=== PATIENT | female | born 1955 | race Caucasian/White ===

== ENCOUNTER 2016-07-25 22:35 | Observation (INO) ==
[2016-07-25 23:25] LABS: Basophils # 0.1 K/mcL (0.0-0.2); Basophils % 0.7 %; Eosinophils # 0.7 K/mcL (0.0-0.6); Eosinophils % 6.4 %; Hematocrit 35.4 % (35.3-44.9); Hemoglobin 11.4 g/dL (11.5-15.4); Immature Granulocytes % 0.6 % (0-4); Lymphocytes % 28.8 %; Mean Corpuscular HGB Conc 32.2 g/dL (31.6-35.5); Mean Corpuscular Hemoglobin 29.8 pg (28.0-33.3); Mean Corpuscular Volume 92.7 fL (83.0-100.0); Monocytes # 0.5 K/mcL (0.0-1.3); Monocytes % 4.7 %; Neutrophils # 6.1 K/mcL (1.6-8.9); Platelet Count 251 K/mcL (140-400); Red Blood Count 3.82 M/mcL (3.82-4.97); Red Cell Distribution Width 14.3 % (11.5-14.5); Segmented Neutrophils % 58.8 %
[2016-07-25 23:35] LABS: BUN/Creatinine Ratio 15 (6-26); Blood Urea Nitrogen 15 mg/dL (7-20); Calcium 9.3 mg/dL (8.6-10.8); Carbon Dioxide 24 mEq/L (19-29); Chloride 107 mEq/L (98-109); Glucose 142 mg/dL (70-99); Osmolality,Calculated 297 (280-300); Potassium 3.6 mEq/L (3.5-4.5); Sodium 142 mEq/L (136-145); eGFR For African Americans > 60 (> 60); eGFR For Non-African Americans 58 (> 60)
[2016-07-26 01:06] LABS: Bilirubin,Urine Negative (Negative); Blood,Urine Negative (Negative); Clarity,Urine Cloudy (Clear); Color,Urine Yellow (Yellow); Glucose,Urine (UA) Normal (Normal); Ketones,Urine Negative (Negative); Leukocyte Esterase,Urine Moderate (Negative); Nitrite,Urine Negative (Negative); PH,Urine 6.5 pH Units (5.0-8.0); Protein,Urine 30 mg/dL (Neg-Trace); Specific Gravity,Urine 1.027 (1.010-1.025); Urobilinogen,Urine Normal (Normal)
[2016-07-26 01:14] LABS: Bacteria,Urine Few per hpf (None-Few); Hyaline Casts,Urine Few per lpf (None-Few); Squamous Epithelial Cell,Urine Few per lpf (None-Few)
--- NOTE | 2016-07-26 02:34 | Emergency Department Note ---
Disposition Clinical Impression: Chest heaviness, Dyspnea on exertion, Bacteriuria, Peripheral edema Disposition: Admitted As Inpatient Condition: Good Referrals: NO,PCP [Primary Care Provider] - Forms: ED Satisfaction Letter SOB HPI - General Chief Complaint: ED Shortness of Breath/Dyspnea Stated Complaint: "SOB/Swollen Feet/Ankles" Time Seen by Provider: 07/25/16 22:42 Source: patient, family Mode of arrival: private vehicle Limitations: no limitations Nursing Notes Reviewed: Yes Vital Signs Reviewed: Yes - History of Present Illness Pt Subjective Complaint: shortness of breath, chest pain ("heaviness") Onset (ago): day(s) Context: occurred during exertion Severity: moderate Consistency/Duration: intermittent, gradually worsening Improves with: oxygen, rest, upright position Worsens with: lying flat, exertion Known history of: asthma Associated symptoms: Reports: chest pain ("heaviness"), cough, orthopnea. Denies: pain with inspiration, fever, wheezing, sputum production, lower extremity pain, polyuria, polydipsia, parasthesias, palpitations, hemoptysis, diaphoresis, nausea/vomiting, syncope, abdominal pain, sense of impending doom Treatment prior to arrival: oxygen Cough present: Yes Cough Description: Involuntary, Non-Productive, Dry Cough Frequency: Intermittent Sputum production: No Sputum Amount: None - Related Data Home oxygen amount: CPAP Home Medications Medication Instructions Recorded Confirmed Albuterol Sulfate [Albuterol 2 puff IH Q4HR PRN 04/19/16 04/19/16 Inhaler] Amlodipine Besylate 10 mg PO DAILY 04/19/16 04/19/16 Aspirin 81 mg PO DAILY 04/19/16 04/19/16 Atorvastatin Calcium [Lipitor] 20 mg PO HS 04/19/16 04/19/16 Beclomethasone Diprop 40mcg [Qvar 2 puff IH BID PRN 04/19/16 04/19/16 40 mcg] Bisoprolol/HCTZ 2.5/6.25 [Ziac 1 each PO DAILY 04/19/16 04/19/16 2.5/6.25] Dicyclomine HCl [Bentyl] 20 mg PO QID 04/19/16 04/19/16 Duloxetine HCl [Cymbalta] 60 mg PO HS 04/19/16 04/19/16 Loratadine [Allergy Relief] 10 mg PO HS 04/19/16 04/19/16 Losartan/Hydrochlorothiazide 1 tab PO DAILY 04/19/16 04/19/16 [Hyzaar 100-25 Tablet] Montelukast [Singulair] 10 mg PO HS 04/19/16 04/19/16 Pregabalin [Lyrica] 100 mg PO BID 04/19/16 04/19/16 Allergies Allergy/AdvReac Type Severity Reaction Status Date / Time Cyclobenzaprine AdvReac Rash Verified 04/19/16 13:47 [From Flexeril] Hydromorphone [From Dilaudid] AdvReac Rash Verified 04/19/16 13:47 Penicillins [PCN] AdvReac Rash Verified 04/19/16 13:47 Sulfa (Sulfonamide AdvReac Rash Verified 04/19/16 13:47 Antibiotics) All systems ED: reviewed and negative except as stated. Constitutional: Denies: fever, chills, weakness Cardiovascular: Reports: chest pain, dyspnea on exertion, orthopnea, edema. Denies: palpitations, syncope, paroxysmal nocturnal dyspnea Respiratory: Reports: cough, dyspnea. Denies: wheezes, hemoptysis, stridor, sputum production Gastrointestinal: Denies: abdominal pain, nausea, vomiting Musculoskeletal: Denies: back pain, neck pain, joint swelling Neurological: Denies: headache, weakness Past Medical History - Past Medical History Attestation: Yes The following information was validated with the patient. 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 Absent: scleral icterus, conjunctival injection, periorbital swelling - ENT ENT exam: mucous membranes moist - Neck Neck exam: Present: normal inspection, full ROM. Absent: lymphadenopathy - Chest Chest inspection: Present: normal inspection, symmetric chest wall rise. Absent : tenderness - Respiratory Respiratory exam: Present: normal lung sounds bilaterally. Absent: respiratory distress, wheezes, stridor, accessory muscle use, prolonged expiratory phase - Cardiovascular Cardiovascular exam: Present: regular rate, normal rhythm, normal heart sounds - Abdominal Exam Abdominal exam: Present: soft, Non-Tender. Absent: mass - Extremities Exam Extremities exam: Present: full ROM, normal capillary refill, pedal edema. Absent: joint swelling, calf tenderness - Expanded Lower Extremity Exam Gait: observed and normal - Neurological Exam Neurological exam: Present: alert, oriented X3, CN II-XII intact, normal gait - Psychiatric Psychiatric exam: Present: normal affect, normal mood - Skin Skin exam: Present: warm, dry, intact, normal color Course Course Narrative: Patient is a 61-year-old morbidly obese diabetic female with hyperlipidemia and hypertension. She presents for evaluation of peripheral edema, dyspnea on exertion, orthopnea and episodic chest heaviness. Her last stress test was in 2014, and was not normal, per her report. Her last heart catheterization was in 2008 and showed blockage in one vessel. Per her report. That was done at [facility]. She has no pain at this time. X-ray does not show any abnormalities. EKG is unchanged compared to previous. Labs are essentially unremarkable. Given her multiple risk factors, I am concerned for the dyspnea and chest heaviness being an anginal equivalent. She will require admission for further evaluation. Case has been discussed with Dr. Brandon. He has seen the patient and agrees with the assessment and plan. Vital Signs Temperature 98.3 F 07/26/16 00:12 Pulse Rate 84 07/26/16 00:12 Respiratory Rate 20 07/26/16 00:12 Blood Pressure 180/66 07/26/16 00:12 O2 Sat by Pulse Oximetry 95 07/26/16 00:12 Temperature 98.3 F 07/26/16 00:12 Pulse Rate 79 07/26/16 01:48 Respiratory Rate 20 07/26/16 01:48 Blood Pressure 124/69 07/26/16 01:48 O2 Sat by Pulse Oximetry 97 07/26/16 01:48 Oxygen Delivery Oxygen Delivery Room Air Shortness of Breath/Dyspnea - Medical Records Medical records reviewed: Yes I reviewed the patient's medical records. - Lab Data Lab results reviewed: Yes I reviewed the patient's lab results. Result diagrams: 07/25/16 23:17 07/25/16 23:17 Lab Results 07/25/16 07/25/16 07/25/16 Range/Units 23:17 23:17 23:17 WBC 10.4 (4.3-11.1) K/mcL RBC 3.82 (3.82-4.97) M/mcL Hgb 11.4 L (11.5-15.4) g/dL Hct 35.4 (35.3-44.9) % MCV 92.7 (83.0-100.0) fL MCH 29.8 (28.0-33.3) pg MCHC 32.2 (31.6-35.5) g/dL RDW 14.3 (11.5-14.5) % Plt Count 251 (140-400) K/mcL MPV 11.0 (9.4-12.4) fL Immature Gran % 0.6 (0-4) % Seg Neutrophils % 58.8 % Lymphocytes % 28.8 % Monocytes % 4.7 % Eosinophils % 6.4 % Basophils % 0.7 % Neutrophils # 6.1 (1.6-8.9) K/mcL Lymphocytes # 3.0 (0.6-4.6) K/mcL Monocytes # 0.5 (0.0-1.3) K/mcL Eosinophils # 0.7 H (0.0-0.6) K/mcL Basophils # 0.1 (0.0-0.2) K/mcL Sodium 142 (136-145) mEq/L Potassium 3.6 (3.5-4.5) mEq/L Chloride 107 (98-109) mEq/L Carbon Dioxide 24 (19-29) mEq/L BUN 15 (7-20) mg/dL Creatinine 0.98 (0.57-1.11) mg/dL Est GFR ( Amer) > 60 (> 60) Est GFR (Non-Af Amer) 58 L (> 60) BUN/Creatinine Ratio 15 (6-26) Glucose 142 H (70-99) mg/dL Calculated Osmolality 297 (280-300) Calcium 9.3 (8.6-10.8) mg/dL Troponin I (0-0.03) ng/mL B-Natriuretic Peptide 14 (0-100) pg/mL Ur Specimen Adequacy Urine Color (Yellow) Urine Clarity (Clear) Urine pH (5.0-8.0) pH Units Ur Specific [place] (1.010-1.025) Urine Protein (Neg-Trace) mg/dL Urine Glucose (UA) (Normal) mg/dL Urine Ketones (Negative) mg/dL Urine Blood (Negative) Urine Nitrite (Negative) Urine Bilirubin (Negative) Urine Urobilinogen (Normal) mg/dL Ur Leukocyte Esterase (Negative) Urine Microscopic RBC Urine Microscopic WBC (0-3) per hpf Ur Squamous Epith Cells (None-Few) per lpf Urine Bacteria (None-Few) per hpf Hyaline Casts (None-Few) per lpf Ur Culture Indicated? (NO) 07/25/16 07/26/16 Range/Units 23:17 00:56 WBC (4.3-11.1) K/mcL RBC (3.82-4.97) M/mcL Hgb (11.5-15.4) g/dL Hct (35.3-44.9) % MCV (83.0-100.0) fL MCH (28.0-33.3) pg MCHC (31.6-35.5) g/dL RDW (11.5-14.5) % Plt Count (140-400) K/mcL MPV (9.4-12.4) fL Immature Gran % (0-4) % Seg Neutrophils % % Lymphocytes % % Monocytes % % Eosinophils % % Basophils % % Neutrophils # (1.6-8.9) K/mcL Lymphocytes # (0.6-4.6) K/mcL Monocytes # (0.0-1.3) K/mcL Eosinophils # (0.0-0.6) K/mcL Basophils # (0.0-0.2) K/mcL Sodium (136-145) mEq/L Potassium (3.5-4.5) mEq/L Chloride (98-109) mEq/L Carbon Dioxide (19-29) mEq/L BUN (7-20) mg/dL Creatinine (0.57-1.11) mg/dL Est GFR ( Amer) (> 60) Est GFR (Non-Af Amer) (> 60) BUN/Creatinine Ratio (6-26) Glucose (70-99) mg/dL Calculated Osmolality (280-300) Calcium (8.6-10.8) mg/dL Troponin I 0.00 (0-0.03) ng/mL B-Natriuretic Peptide (0-100) pg/mL Ur Specimen Adequacy See below A Urine Color Yellow (Yellow) Urine Clarity Cloudy A (Clear) Urine pH 6.5 (5.0-8.0) pH Units Ur Specific [place] 1.027 H (1.010-1.025) Urine Protein 30 H (Neg-Trace) mg/dL Urine Glucose (UA) Normal (Normal) mg/dL Urine Ketones Negative (Negative) mg/dL Urine Blood Negative (Negative) Urine Nitrite Negative (Negative) Urine Bilirubin Negative (Negative) Urine Urobilinogen Normal (Normal) mg/dL Ur Leukocyte Esterase Moderate H (Negative) Urine Microscopic RBC Test Not Performed Urine Microscopic WBC 5-15 H (0-3) per hpf Ur Squamous Epith Cells Few (None-Few) per lpf Urine Bacteria Few (None-Few) per hpf Hyaline Casts Few (None-Few) per lpf Ur Culture Indicated? YES A (NO) - Radiology Data Radiology results reviewed: Yes I reviewed the patient's radiology results. Chest X-Ray 07/25/16 22:42 IMPRESSION: 1. No active pulmonary disease. D/ / John Paul Pang MD / John Paul Pang MD Interpreting Provider: John Paul Pang MD - EKG Data EKG attestation: Yes I reviewed and interpreted this EKG. EKG shows normal: Reports: sinus rhythm Rate: Reports: normal Rhythm: Reports: NSR Q waves: Reports: II, aVF Interpretation: Reports: unchanged when compared to prior tracing (date)
[2016-07-26 02:58] LABS: Albumin 3.6 g/dL (3.5-5.0); Bilirubin,Direct 0.1 mg/dL (0.0-0.5); Bilirubin,Indirect 0.2 mg/dL (0.0-1.2); Bilirubin,Total 0.3 mg/dL (0.2-1.2); Globulin 3.5 g/dL (2.4-3.5); Magnesium 1.9 mg/dL (1.6-2.6); Total Protein 7.1 g/dL (6.0-8.3)
[2016-07-26] MEDS ORDERED: Aspirin 81 MG TAB.CHEW PO ONE (04:21)
--- NOTE | 2016-07-26 04:48 | Emergency Department Note ---
START Narrative - START START: I examined this patient and my medical decision-making was reviewed with the DRIER TENDER/PA/Advanced Practice Nurse/Resident Physician. I agree with the documented findings, disposition and treatment plan as described except to the extent set forth below. 61-year-old female presents with concerns of increasing dyspnea on exertion. Patient states she hurt her last heart catheterization was over 10 years ago and showed a 50% blockage which was not stented at that time. Patient does not follow with a price clerk at this time. Patient reports chest pain and dyspnea with exertion with associated palpitations but denies nausea, vomiting, diaphoresis. Lungs are clear to auscultation. ECG shows normal sinus rhythm with rate of 77 without evidence of STEMI or ischemia. Initial troponin negative. Patient will be admitted to the hospital for further Evaluation of chest pain to rule out ACS. Patient comfortable with the plan.
--- NOTE | 2016-07-26 08:45 | Internal Med History&Physical ---
Date of Encounter: 07/26/16 Time of Encounter: 08:40 Assessment and Plan (1) HTN (hypertension) Current visit: Yes Status: Chronic well controlled Qualifiers: Hypertension type: essential hypertension Qualified Code(s): I10 - Essential (primary) hypertension (2) Diabetes Current visit: Yes Status: Chronic resume home meds and sliding scale Qualifiers: Diabetes mellitus type: type 2 Diabetes mellitus complication status: with unspecified complications Diabetes mellitus ferry terminal agent insulin use: unspecified ferry terminal agent insulin use status Qualified Code(s): E11.8 - Type 2 diabetes mellitus with unspecified complications (3) Obesity Current visit: Yes Status: Chronic Qualifiers: Obesity type: due to excess calories Obesity severity: morbid Qualified Code(s): E66.01 - Morbid (severe) obesity due to excess calories (4) Hyperlipidemia Current visit: Yes Status: Chronic check in am Qualifiers: Hyperlipidemia type: other hyperlipidemia Qualified Code(s): E78.4 - Other hyperlipidemia (5) Dyspnea on exertion Current visit: Yes Status: Acute clinically not in chf, chest x ray no pneumonia contribution of cold symptoms likely viral bronchitis with some reactive airway disease will plce on duoneb (6) Peripheral edema Current visit: Yes Status: Acute (7) Chest heaviness Current visit: Yes Status: Acute had moderate risk factors and says has 50% stenosis on one vessel cath 2008 needs urther cardiac evaluation echo and nuclaer stress Internal Medicine - H&P: HPI Chief complaint: chest pain and sob Admitted From: Emergency Dept Plans for Post Hospital Care: Home History of present illness: Ms. Martin is a 61 year old female Patient with history of diabetes, hypertension, obesity, moderate obstructive sleep apnea, CAD says had a cardiac catheter about 2008 which was told she had 50% stenosis in one vessel . Also has history of high cholesterol . had PFT October last year which was normal patient present to the emergency room with chest heaviness and shortness of breath .. heaviness is more with exertion but also at rest sometimes last 20 minutes also concern about leg edema . She also having some dry cough for about 4 weeks which has not been improved also has some orthopnea and some wheezing . denied any fever or chills had a stress test done 2014 negative for ischemia ER evaluation chest x-ray was negative , no pneumonia BNP 14 patient is being admitted for ful]rther evaluation Past Med Surg Social Fam HX - Past Medical History Medical history: coronary artery disease, diabetes, hyperlipidemia, hypertension , other Psychiatric history: depression - Past Surgical History Surgical History: , cholecystectomy, orthopedic, other, other - Social History Smoking Status: Never smoker Smokeless Tobacco Status: No Alcohol use: rarely Drug use: none - Family History Mother Living Status: Age at : 49 Cause of : CHF Hx Family Cardiac Disorders: Yes (CHF, HTN,) Hx Family Respiratory Disorders: No Hx Family Cancer: No Hx Family GI Disorders: No Hx Family Genitourinary Disorders: No Hx Family Endocrine Disorder: Yes (DM) Hx Family Musculoskeletal Disorders: No Hx Family Neuromuscular Disorders: No Hx Family Neurologic Disorders: No Hx Family HEENT Disorders: Yes (Migraines) Hx Family Autoimmune Disorders: No Hx Family Reproductive Disorders: No Hx Family Psychosocial Disorders: No Hx Family Medical Disorders: No Internal Medicine - H&P: Meds Albuterol Sulfate [Albuterol Inhaler] 2 puff IH Q4HR PRN 04/19/16 [History] Amlodipine Besylate 10 mg PO DAILY 04/19/16 [History] Aspirin 81 mg PO DAILY 04/19/16 [History] Atorvastatin Calcium [Lipitor] 20 mg PO HS 04/19/16 [History] Beclomethasone Diprop 40mcg [Qvar 40 mcg] 2 puff IH BID PRN 04/19/16 [History] Bisoprolol/HCTZ 2.5/6.25 [Ziac 2.5/6.25] 1 each PO DAILY 04/19/16 [History] Duloxetine HCl [Cymbalta] 60 mg PO HS 04/19/16 [History] Loratadine [Allergy Relief] 10 mg PO HS 04/19/16 [History] Losartan/Hydrochlorothiazide [Hyzaar 100-25 Tablet] 1 tab PO DAILY 04/19/16 [ History] Montelukast [Singulair] 10 mg PO HS 04/19/16 [History] Pregabalin [Lyrica] 100 mg PO BID 04/19/16 [History] Lamotrigine [Lamictal] 100 mg PO DAILY 07/26/16 [History] Magnesium Oxide [Magnesium] 400 mg PO BID 07/26/16 [History] Allergies Cyclobenzaprine [From Flexeril] Adverse Reaction (Verified 07/26/16 07:49) Rash Hydromorphone [From Dilaudid] Adverse Reaction (Verified 07/26/16 07:49) Rash Penicillins [PCN] Adverse Reaction (Verified 07/26/16 07:49) Rash Sulfa (Sulfonamide Antibiotics) Adverse Reaction (Verified 07/26/16 07:49) Rash All Systems PM: A 10-system review of systems was performed and is negative for pertinent findings except as documented above in the HPI. - Constitutional Constitutional: other - EENT Eyes: no change in vision, no discharge, no pain, no photophobia Ears: no ear discharge, no ear pain, no tinnitus Nose, mouth and throat: no dysphagia, no nasal discharge, no neck pain, no sore throat - Cardiovascular Cardiovascular ROS IM: chest pain, dyspnea, dyspnea on exertion - Respiratory Respiratory: cough, dyspnea, wheezing - Gastrointestinal Gastrointestinal: no abdominal pain, no diarrhea, no hematemesis, no hematochezia, no melena, no nausea, no vomiting - Genitourinary Genitourinary: no change in urinary stream, no dysuria, no flank pain, no hematuria - Musculoskeletal Musculoskeletal ROS IM: no numbness, no tingling - Integumentary Integumentary IM: no rash, no unusual bruising - Neurological Neurological ROS: no confusion, no convulsions, no focal weakness, no numbness, no tingling, no tremor(s) - Constitutional Vitals: Temp Pulse Resp BP Pulse Ox 97.9 F 75 16 112/98 95 07/26/16 04:25 07/26/16 04:25 07/26/16 04:25 07/26/16 04:25 07/26/16 04:25 - Head Head exam: Present: atraumatic, normocephalic - Eye Eye exam: Present: PERRL, conjuntiva pink, sclera anicteric Pupils: Present: PERRL - Neck Neck exam general surgery: Present: supple, trachea midline. Absent: lymphadenopathy - Respiratory Respiratory exam: Present: rhonchi, wheezes - Cardiovascular Cardiovascular exam: Present: RRR, +S1, +S2. Absent: diastolic murmur, gallop, rubs, systolic murmur - GI/Abdominal GI/Abdominal exam: Present: normal bowel sounds, soft, no peritoneal signs. Absent: distended, tenderness - Extremities Exam Extremities exam: Present: pedal edema Internal Med - H&P Results - Labs CBC & Chem 7: 07/25/16 23:17 07/25/16 23:17
[2016-07-26] MEDS ORDERED: Naloxone 0.4 MG/ML INJ IVP PRN (08:52)
[2016-07-26] MEDS ORDERED: Ipratropium/Albuterol Neb 3 ML IH PRN (08:56)
[2016-07-26] MEDS ORDERED: *HR* Morphine 2 MG/ML SYRINGE IVP PRN (12:35)
[2016-07-26] MEDS: Magnesium Oxide 400 MG TABLET PO SCH ×2 (12:46→21:58)
[2016-07-26] MEDS: Aspirin 81 MG TAB.CHEW PO SCH (12:46)
[2016-07-26] MEDS: 0.9 % Sodium Chloride 1,000 ML IVC SCH ×2 (13:29→22:09)
[2016-07-26] MEDS: amLODIPine 5 MG TABLET PO SCH (13:29)
[2016-07-26] MEDS: Losartan/HCTZ 50-12.5 TABLET PO SCH (13:30)
[2016-07-26] MEDS: Pregabalin 50 MG CAPSULE PO SCH ×2 (13:30→21:57)
[2016-07-26] MEDS: Bisoprolol/HCTZ 2.5/6.25 TABLET PO SCH (13:30)
[2016-07-26] MEDS: Beclomethasone 40mcg MDI IH SCH ×2 (15:54→19:43)
[2016-07-26] MEDS ORDERED: Loratadine 10 MG TABLET PO SCH (21:00)
[2016-07-27] MEDS: 0.9 % Sodium Chloride 1,000 ML IVC SCH (02:52)
[2016-07-27 04:47] LABS: Alanine Aminotransferase 33 Units/L (0-55); Albumin 3.4 g/dL (3.5-5.0); Alkaline Phosphatase 110 Units/L (38-126); Aspartate Amino Transferase 21 Units/L (5-34); BUN/Creatinine Ratio 22 (6-26); Bilirubin,Total 0.3 mg/dL (0.2-1.2); Blood Urea Nitrogen 18 mg/dL (7-20); Calcium 9.3 mg/dL (8.6-10.8); Carbon Dioxide 27 mEq/L (19-29); Chloride 108 mEq/L (98-109); Chol/HDL Ratio 3.6 (0-4.9); Cholesterol 141 mg/dL (< 200); Globulin 3.5 g/dL (2.4-3.5); Glucose 135 mg/dL (70-99); HDL Cholesterol 39 mg/dL (40-59); LDL Cholesterol,Calculated 60 mg/dL (0-99); Magnesium 2.2 mg/dL (1.6-2.6); Osmolality,Calculated 298 (280-300); Potassium 3.8 mEq/L (3.5-4.5); Sodium 142 mEq/L (136-145); Total Protein 6.9 g/dL (6.0-8.3); Triglycerides 209 mg/dL (< 150); eGFR For African Americans > 60 (> 60); eGFR For Non-African Americans > 60 (> 60)
[2016-07-27] MEDS ORDERED: Regadenoson 0.4 MG/5 ML SYRINGE IVP ONE (06:09)
[2016-07-27] MEDS: Beclomethasone 40mcg MDI IH SCH (07:49)
--- NOTE | 2016-07-27 08:48 | Electrocardiograph Report ---
[address] [place] [address] Test Date: 2016-07-25 Pat Name: Keerthi Martin Department: 102 Room: 3B Gender: F Pathology Secretary: Ebony : 1955 Requested By: Isaiah Brandon Order Number: [id number] Reading MD: Travis Anton MD Measurements Intervals [place] Rate: 77 P: 54 ID: [id number] QRS: 30 QRSD: 100 T: 37 QT: 373 QTc: 405 Interpretive Statements SINUS RHYTHM LOW QRS VOLTAGE IN PRECORDIAL LEADS POSSIBLE INFERIOR MYOCARDIAL INFARCTION, PROBABLY OLD Electronically Signed On 07-27-2016 8:47:23 EDT by Travis Anton MD
--- NOTE | 2016-07-27 09:09 | ECHO - Doppler Report ---
Echocardiogram Name: Keerthi Martin Date of Study: 07/26/2016 Date: 1955 Ht: 62.0 in Medical Record#: [id number] Age: 61 Wt: 257.0 lb Gender: Female BSA: 2.13 Order #: [id number] Location: [facility] Room #: [id number] Reading Physician: Timoteo Dinero MD, [facility] Industrial Electrical Engineer: Brenda Ramirez Ordering Physician: Rafat Fuentes MD Primary Physician: Timoteo Vela MD Indications: Chest pain Impressions: Normal LV systolic function, LVEF 60%. Normal left ventricular diastolic function. Normal right ventricular size and function. No significant valvular dysfunction. No evidence of pulmonary hypertension. Left Ventricular Wall Motion: Rest Echo Findings All wall segments showed normal motion. Findings: Study Quality * Suboptimal echo windows. ECG Findings * Normal sinus rhythm. Left Ventricle * Normal LV systolic function, LVEF 60%. * Normal LV chamber size and wall thickness. * Normal left ventricular diastolic function. Right Ventricle * Normal right ventricular size and function. Left Atrium * Normal left atrial size. Right Atrium * Normal right atrial size. Aorta * Normally sized aortic root. Pericardium * There is no pericardial effusion present. IVC * The IVC is not well evaluated. Aortic Valve * Aortic valve not well visualized. * No aortic stenosis. * No aortic regurgitation. Mitral Valve * Mild mitral annular calcification * No mitral stenosis. * Trace mitral regurgitation. Tricuspid Valve * Tricuspid valve not well visualized. * No tricuspid stenosis. * Trace tricuspid regurgitation. * No evidence of pulmonary hypertension. Pulmonic Valve * Pulmonic valve not well visualized. * No pulmonic stenosis. * Trace pulmonic regurgitation. History Hypertension Hypercholesteremia Family History of CAD 132 a was performed. Measurements: BP: 132/ 61 2D Normal Values RVIDd: 3.70 cm IVSd: .90 cm 0.6 - 1.0 cm LVIDd: 4.90 cm 3.7 - 5.6 cm LVPWd: .80 cm 0.6 - 1.1 cm LVIDs: 3.00 cm 1.5 - 3.6 cm AO: 2.80 cm < 4.0 cm %FS: 38.80 cm >25 % LA volume: 54 Mitral Valve Peak E:1.17 m/sec Peak A:1.09 m/sec E/A Ratio:1.1 Tricuspid Valve TV Regurg Peak Grad: 27.00mmHg TV Regurg Peak Juan David: 2.62m/sec Updated by Timoteo Dinero MD, [facility] on 07/27/2016 9:05:10 AM electronically signed on 07/27/2016 9:05:47 AM with status of Final Wall Motion Ruiz: 1=Normal, 2=Hypokinesis, 3=Akinesis, 4=Dyskinesis, 5=Aneurysmal, 6=Hyperkinetic, X=Not Visualized (Blank)=Missing
[2016-07-27 10:10] LABS: Hemoglobin A1C 6.7 %
[2016-07-27] MEDS: amLODIPine 5 MG TABLET PO SCH (11:07)
[2016-07-27] MEDS: Bisoprolol/HCTZ 2.5/6.25 TABLET PO SCH (11:07)
[2016-07-27] MEDS: Losartan/HCTZ 50-12.5 TABLET PO SCH (11:07)
[2016-07-27] MEDS: Aspirin 81 MG TAB.CHEW PO SCH (11:07)
--- NOTE | 2016-07-27 11:44 | Nuclear Medicine Stress Report ---
Regadenoson Nuclear 2 day Name: Keerthi Martin Date of Study: 07/26/2016 Date: 1955 Ht: 62.0 in Medical Record#: [id number] Age: 61 Wt: 257.0 lb Gender: Female Order #: [id number] Location: [facility] Room: [facility] Supervising Provider: Azalia Garcia CNP Reading Physician: Timoteo Dinero MD, [facility] Ordering Physician: Christina Mckeon CNP Primary Care Physician: Timoteo Vela MD Stress Technologist: Meenu Blair RRT Supervisor [place]: [place] Indications: Chest Pain Impression: No significant ECG changes with regadenoson. Gated LVEF > 70%. Perfusion imaging was negative for ischemia or infarct. History: Hypertension Hypercholesteremia Stress Test Summary: Stress Test Type: Pharmacologic Regadenoson 0.4mg/5ml given IV Baseline Information: Initial Heart Rate: 75 Blood Pressure: 122/74 Stress Information: Test Terminated Due to (primary): As per protocol Maximum Blood Pressure: 122/64 Maximum Heart Rate: 93 Percent Maximum Heart Rate Achieved: 58 Double Product: [id number] Symptoms: No chest symptoms Nuclear Summary: SPECT myocardial perfusion imaging using Tc99m Sestamibi given intravenously was performed at rest and following cardiac stress testing. The resting images were obtained following initial dose of 33.5 mCi. Following stress an additional dose of 32.8 mCi was given at peak exercise or 30 seconds post regadenoson infusion. Findings: Stress Note * Resting ECG demonstrated sinus rhythm, left axis deviation, low voltage in precordial leads, poor r-wave progression. * No baseline arrhythmias were noted. * Patient had no chest pain during stress. * No arrhythmias were noted during stress. * No significant ECG changes with regadenoson. Hemodynamic responses * Normal hemodynamic responses to pharmacologic stress. Study Quality * Study quality is good. Gated EF > 70% * Gated LVEF > 70%. Left Ventricle * The left ventricle is not dilated. * Normal Segmental Perfusion in rest. * Normal segmental perfusion in stress. TID * No evidence of transient ischemic dilatation. Updated by Timoteo Dinero MD, [facility] on 07/27/2016 11:38:32 AM electronically signed on 07/27/2016 11:39:01 AM with status of Final
--- NOTE | 2016-07-27 18:59 | Discharge Summary ---
Date of Encounter: 07/26/16 Time of Encounter: 13:50 - Discharge Diagnosis (1) Chest heaviness Priority: Primary Status: Acute Comments: Patient is a 61-year-old diabetic female with hyperlipidemia and hypertension. She presents with new peripheral edema dyspnea on exertion and intermittent chest heaviness. Her last stress test was in 2014 and she states it was not normal. Her last heart catheter was in 2008 and had blockage in one vessel. All this was done of her hospital. She has no pain during my evaluation. Chest x-ray was negative for any cardiopulmonary processes. EKG was normal sinus rhythm and unchanged from previous. Troponins were negative 3. Echo showed LVEF 60% and normal LV diastolic function. Today's stress test showed gated LVEF greater than 70%, and was negative for ischemia or infarct. Has denied pain since she has been here she is also concerned about her peripheral edema. She is already on hydrochlorothiazide. I suggested some lifestyle modification and elevating her feet more frequently. (2) HTN (hypertension) Priority: Secondary Status: Chronic Comments: Chronic. Continue home medications. Qualifiers: Hypertension type: essential hypertension Qualified Code(s): I10 - Essential (primary) hypertension (3) Diabetes Priority: Secondary Status: Chronic Comments: 1C was 6.7. Glucose when she is here is in the 120s and 130s. Continue home medications. Continue diabetic diet. Follow-up with family doctor. Qualifiers: Diabetes mellitus type: type 2 Diabetes mellitus complication status: with unspecified complications Diabetes mellitus assisted insulin use: unspecified assisted insulin use status Qualified Code(s): E11.8 - Type 2 diabetes mellitus with unspecified complications (4) Obesity Priority: Secondary Status: Chronic Comments: Chronic. Lifestyle modifications. Qualifiers: Obesity type: due to excess calories Obesity severity: morbid Qualified Code(s): E66.01 - Morbid (severe) obesity due to excess calories (5) Hyperlipidemia Priority: Secondary Status: Chronic Comments: Chronic. Continue home medications. Qualifiers: Hyperlipidemia type: other hyperlipidemia Qualified Code(s): E78.4 - Other hyperlipidemia - Discharge Medications Home Medications: Albuterol Sulfate [Albuterol Inhaler] 2 puff IH Q4HR PRN 04/19/16 [History] Amlodipine Besylate 10 mg PO DAILY 04/19/16 [History] Aspirin 81 mg PO DAILY 04/19/16 [History] Atorvastatin Calcium [Lipitor] 20 mg PO HS 12/20/16 [History] Beclomethasone Diprop 40mcg [Qvar 40 mcg] 2 puff IH BID PRN 04/19/16 [History] Bisoprolol/HCTZ 2.5/6.25 [Ziac 2.5/6.25] 1 each PO DAILY 04/19/16 [History] Duloxetine HCl [Cymbalta] 60 mg PO HS 04/19/16 [History] Loratadine [Allergy Relief] 10 mg PO HS 04/19/16 [History] Losartan/Hydrochlorothiazide [Hyzaar 100-25 Tablet] 1 tab PO DAILY 04/19/16 [ History] Montelukast [Singulair] 10 mg PO HS 04/19/16 [History] Pregabalin [Lyrica] 100 mg PO BID 04/19/16 [History] Lamotrigine [Lamictal] 100 mg PO DAILY 07/26/16 [History] Magnesium Oxide [Magnesium] 400 mg PO BID 07/26/16 [History] Allergies/Adverse Reactions: Allergies Cyclobenzaprine [From Flexeril] Adverse Reaction (Verified 07/26/16 07:49) Rash Hydromorphone [From Dilaudid] Adverse Reaction (Verified 07/26/16 07:49) Rash Penicillins [PCN] Adverse Reaction (Verified 07/26/16 07:49) Rash Sulfa (Sulfonamide Antibiotics) Adverse Reaction (Verified 07/26/16 07:49) Rash Procedures/tests Complete & Pending: Procedures Performed prior 72 hours Category Date Time Status NM suzan perf SPECT multi [NM] Routine Exams 07/26/16 08:55 Taken EV echocardiogram Routine Y 07/26/16 08:54 Completed SP pharm nuclear stress Routine Y 07/27/16 08:55 Completed Date of admission: 07/26/16 03:31 Primary care physician: Blake Peña Consults: 07/26/16 04:43 Consult to Vice President Of Consulting Services [CONS] Routine Reason for SW Consult: Pt requesting SW consult to assist with setting up advance directives. Discharging clinician: Samra Bowens Anticipated date of discharge: 07/27/16 - Patient Status Disposition: Home, Self-Care Functional capacity at discharge: independent ambulation Overall status at discharge: patient is back to baseline - Discharge Instructions Follow Up With: Timoteo Vela MD [Primary Care Provider] - Additional Instructions: Please follow with her primary care physician Continue to take your normal home medications Please return to the emergency department for evaluation if you have any new symptoms, problems, or concerns. - Diet and Activity Activity: resume usual activities as tolerated Diet: advance to your usual diet Interval History: Patient presents to emergency department yesterday with complaint of intermittent chest pain dyspnea on exertion, and peripheral edema. She also reports some orthopnea. Chest x-ray was negative for cardiopulmonary disease. Stress test was negative for ischemia or infarct. Echo showed LVEF of 65% and normal diastolic function. She has been pain-free since arrival to unit. Her EKG was normal sinus and unchanged from prior. Pain is not reproducible with palpation or movement. Patient already takes diuretic, and I discussed with her decrease in sodium and to the intake and elevating feet more frequently. Also discussed wearing compression stockings. Her lungs are clear and she denies cough. Patient is stable for discharge at this time. Hospital course: Ms. Martin is a 61 year old female - Time Spent with Patient Total time spent providing and/or coordinating discharge services: Less than 30 minutes - Constitutional Vitals: Temp Pulse Resp BP Pulse Ox 97.8 F 70 15 114/73 93 L 07/27/16 15:12 07/27/16 15:12 07/27/16 15:12 07/27/16 15:12 07/27/16 15:12 General appearance: Present: cooperative, A&O X 3, pleasant, answers questions appropriately - Head Head exam: Present: normal inspection - Eye Eye exam: Present: normal appearance, conjuntiva pink - ENT ENT exam: Present: mucous membranes moist, normal exam - Neck Neck exam general surgery: Present: normal inspection. Absent: lymphadenopathy , tenderness - Respiratory Respiratory exam: Present: CTAB. Absent: decreased breath sounds, rales, respiratory distress, rhonchi, stridor, wheezes, tachypnea - Cardiovascular Cardiovascular exam: Present: RRR, +S1, +S2. Absent: diastolic murmur, systolic murmur - GI/Abdominal GI/Abdominal exam: Present: normal bowel sounds, soft. Absent: hepatomegaly, tenderness - Extremities Exam Extremities exam: Present: normal capillary refill, pedal edema, warm, radial pulses palpable and symetrical. Absent: calf tenderness Additional comments: Patient has +1 to +2 nonpitting peripheral edema, pedal, ankle, and pretibial bilaterally. Patient states it is actually improved. - Neurological Exam Neurological exam: Present: alert, oriented X3, no focal deficits. Absent: facial droop, speech deficit
[2016-07-27 19:27] VITALS: BP 131/78
== END 2016-07-27 20:02 | disposition home or self-care (01) ==
LOC: EMEROO 22:35 → 3BNU 22:35
PROVIDERS: ADMIT Internal Medicine; ATTEND Nurse Practitioner Family